=== PATIENT | male | born 1965 | race Caucasian/White ===

== ENCOUNTER 2020-09-11 13:49 | Outpatient (REF) | payer BC, SELFPAY | END 2020-09-11 13:50 | disposition home or self-care (01) | LOC: HO.LAB 13:49 | PROVIDERS: PCP Internal Medicine; Visit Provider Internal Medicine | DX: Z20.828 Contact with and (suspected) exposure to other viral communicable diseases (principal) | CPT/HCPCS: C9803; U0003 ==

== ENCOUNTER 2020-11-03 09:59 | Outpatient (REF) | payer BC, SELFPAY | END 2020-11-03 10:00 | disposition home or self-care (01) | LOC: HO.LAB 09:59 | PROVIDERS: Visit Provider Internal Medicine | DX: Z20.822 Contact with and (suspected) exposure to COVID-19 (principal) | CPT/HCPCS: 36415; C9803; U0003; U0005 ==

== ENCOUNTER 2023-06-03 13:19 | Outpatient (REF) | payer OTHER, SELFPAY ==
[2023-06-03 16:04] LABS: MANUAL DIFF FLAG NO
[2023-06-03 16:08] LABS: Basophils Percent Auto 0.8 % (0-2); Eosinophils Absolute Auto 0.1 X10*3/uL (0.0-0.4); Eosinophils Percent Auto 1.5 % (0-4); Hematocrit 44.2 % (42.0-52.0); Hemoglobin 15.1 g/dl (14.0-18.0); Imm Gran Abs Auto 0.01 X10*3/uL (0.00-0.03); Imm Gran Pct Auto 0.2 % (0.0-0.4); Lymphocytes Absolute Auto 2.2 X10*3/uL (1.2-4.9); Lymphocytes Percent Auto 41.1 % (20-40); Mean Corpuscular HGB Conc 34.2 g/dl (31.0-36.0); Mean Corpuscular Hemoglobin 30.4 pg (27.0-33.0); Mean Corpuscular Volume 88.9 fL (80.0-98.0); Mean Platelet Volume 11.4 fL (9.4-12.4); Monocytes Absolute Auto 0.3 X10*3/uL (0.1-1.2); Neutrophils Absolute Auto 2.7 x10*3/uL (2.0-8.3); Neutrophils Percent Auto 50.4 % (45-73); Platelet Count 198 X10*3/uL (160-400); Red Blood Count 4.97 X10*6/uL (4.60-5.80); Red Cell Distribution Width 12.6 % (11.0-16.0); White Blood Count 5.3 X10*3/uL (4.8-10.8)
[2023-06-03 16:27] LABS: Alanine Aminotransferase 24 U/L (0-40); Albumin Level 4.5 g/dL (3.5-5.0); Alkaline Phosphatase 78 U/L (39-117); Anion Gap 13 (12-20); Aspartate Amino Transferase 25 U/L (5-37); Blood Urea Nitrogen 15 mg/dL (9-16); Calcium 9.5 mg/dL (8.4-10.2); Carbon Dioxide 27 mmol/L (22-29); Chloride 106 mmol/L (96-108); Cholesterol 216 mg/dL (<200); Estimated Glomerular Filt Rate > 60; Glucose Fasting 88 mg/dL (60-99); HDL Cholesterol 41 mg/dL (>40); LDL Cholesterol Calculated 143 mg/dL (<100); Potassium 4.3 mmol/L (3.3-5.1); Sodium 142 mmol/L (135-145); Total Protein 7.4 g/dL (6.5-8.0); Triglycerides 161 mg/dL (<150)
[2023-06-03 16:43] LABS: Thyroid Stimulating Hormone 1.53 uIU/mL (0.32-4.0); Vitamin D 25-OH Total 38.8 ng/mL (>30)
[2023-06-03 16:45] LABS: PSA,Total (Free>4and<10) 4.03 ng/mL (0.00-4.00)
[2023-06-04 13:34] LABS: Free Prostate Spec Ag 0.7 ng/mL; Percent Free Prostate Spec Ag 19 % (calc) (>25); Prostate Specific Ag Total 3.7 ng/mL (< OR = 4.0)
== END 2023-06-03 13:20 | disposition home or self-care (01) ==
LOC: HO.HMGCLDS 13:19
PROVIDERS: PCP Internal Medicine; Visit Provider Internal Medicine
DX: Z00.00 Encounter for general adult medical examination without abnormal findings (principal); Z12.5 Encounter for screening for malignant neoplasm of prostate; F98.8 Other specified behavioral and emotional disorders with onset usually occurring in childhood and adolescence
CPT/HCPCS: 36415; 80053; 80061; 82306; 84153; 84154; 84443; 85025

== ENCOUNTER 2023-08-12 12:52 | Outpatient (REF) | payer OTHER, SELFPAY ==
[2023-08-12 16:38] LABS: PSA,Total (Free>4and<10) 3.12 ng/mL (0.00-4.00)
== END 2023-08-12 12:53 | disposition home or self-care (01) ==
LOC: HO.HMGCLDS 12:52
PROVIDERS: PCP Internal Medicine; Visit Provider Internal Medicine
DX: Z12.5 Encounter for screening for malignant neoplasm of prostate (principal); R97.20 Elevated prostate specific antigen [PSA]
CPT/HCPCS: 36415; 84153

== ENCOUNTER 2024-08-03 12:07 | Outpatient (REF) | payer BC, SELFPAY ==
[2024-08-03 13:00] LABS: MANUAL DIFF FLAG NO
[2024-08-03 14:34] LABS: Basophils Absolute Auto 0.1 X10*3/uL (0.0-0.2); Eosinophils Absolute Auto 0.1 X10*3/uL (0.0-0.4); Eosinophils Percent Auto 2.4 % (0-4); Hematocrit 41.9 % (42.0-52.0); Hemoglobin 13.9 g/dl (14.0-18.0); Imm Gran Abs Auto 0.01 X10*3/uL (0.00-0.03); Imm Gran Pct Auto 0.2 % (0.0-0.4); Lymphocytes Absolute Auto 2.6 X10*3/uL (1.2-4.9); Lymphocytes Percent Auto 50.7 % (20-40); Mean Corpuscular HGB Conc 33.2 g/dl (31.0-36.0); Mean Corpuscular Hemoglobin 29.6 pg (27.0-33.0); Mean Corpuscular Volume 89.3 fL (80.0-98.0); Monocytes Absolute Auto 0.4 X10*3/uL (0.1-1.2); Monocytes Percent Auto 7.9 % (2-11); Neutrophils Absolute Auto 1.9 x10*3/uL (2.0-8.3); Neutrophils Percent Auto 37.8 % (45-73); Platelet Count 205 X10*3/uL (160-400); Red Blood Count 4.69 X10*6/uL (4.60-5.80); White Blood Count 5.1 X10*3/uL (4.8-10.8)
[2024-08-03 15:29] LABS: Alanine Aminotransferase 26 U/L (0-40); Albumin Level 4.3 g/dL (3.5-5.0); Anion Gap 11 (12-20); Aspartate Amino Transferase 28 U/L (5-37); Bilirubin Total 0.7 mg/dL (0.0-1.0); Blood Urea Nitrogen 13 mg/dL (9-16); Calcium 9.6 mg/dL (8.4-10.2); Carbon Dioxide 28 mmol/L (22-29); Chloride 106 mmol/L (96-108); Cholesterol 220 mg/dL (<200); Estimated Glomerular Filt Rate > 60; Glucose Random 85 mg/dL (60-115); HDL Cholesterol 46 mg/dL (>40); LDL Cholesterol Calculated 139 mg/dL (<100); Potassium 4.3 mmol/L (3.3-5.1); Sodium 141 mmol/L (135-145); Total Protein 7.1 g/dL (6.5-8.0); Triglycerides 175 mg/dL (<150)
[2024-08-03 15:38] LABS: Alkaline Phosphatase 73 U/L (39-117)
[2024-08-03 15:42] LABS: Thyroid Stimulating Hormone 1.04 uIU/mL (0.32-4.0); Vitamin D 25-OH Total 18.5 ng/mL (>30)
[2024-08-11 18:23] LABS: Factor V Leiden POSITIVE
== END 2024-08-03 12:08 | disposition home or self-care (01) ==
LOC: HO.HMGCX 12:07
PROVIDERS: PCP Internal Medicine; Visit Provider Internal Medicine
DX: R05.8 Other specified cough (principal); Z00.00 Encounter for general adult medical examination without abnormal findings; M11.9 Crystal arthropathy, unspecified; F98.8 Other specified behavioral and emotional disorders with onset usually occurring in childhood and adolescence; F32.9 Major depressive disorder, single episode, unspecified; Z83.2 Family history of diseases of the blood and blood-forming organs and certain disorders involving the immune mechanism
CPT/HCPCS: 36415; 71046; 80053; 80061; 81241; 82306; 84443; 85025

== ENCOUNTER → 2024-09-20 11:16 | Outpatient (BNV) | payer BC, SELFPAY | PROVIDERS: PCP Internal Medicine; Visit Provider Internal Medicine | DX: D68.51 Activated protein C resistance (principal) | CPT/HCPCS: 99204 ==

== ENCOUNTER 2024-09-27 09:25 | Outpatient (AMB) | payer BC, SELFPAY ==
--- NOTE | 2024-09-27 09:27 | MHC.OFFVIS ---
Vital Signs 09/27/24 09:33 Height 5 ft 7 in Weight 156 lb BMI 24.4 BP 153/93 H Blood Pressure Location Rt brachial Position Sitting Pulse 69 Intake Visit Reasons: Umbilical Hernia Intake Note: Patient referred by pcp Dr. Lucia for Umbilical hernia. Hx of umbilical hernia since childhood, Patient c/o: progressively growing. Denies pain. Education And Training Manager Required: No Accompanied by: Self / Same As Patient Allergies Penicillins [PENICILLINS] Allergy (Unknown, Unverified 06/01/24 11:51) UNKNOWN Penicillin Allergy (Unknown, Uncoded 06/01/24 11:51) HPI Comments Details: The patient presents here for evaluation of a symptomatic umbilical hernia. He is had this many years time. His increasing in size, become more symptomatic. He would like to have it repaired. He is no other GI issues or complaints. Does occasionally heavy lifting but is quite active in the skin. Chart was reviewed and patient evaluated. [facility] Medical History Crystal induced arthropathy Radiculopathy, cervical region Essential (primary) hypertension Acute right-sided low back pain without sciatica Prostate cancer screening Colon cancer screening Encounter for general adult medical examination without abnormal findings Attention deficit disorder (ADD) without hyperactivity Elevated PSA Factor V Leiden mutation Rash Reactive depression Family History Mother Factor 5 Leiden mutation, heterozygous Maternal Uncle Factor 5 Leiden mutation, heterozygous Family/Other Factor 5 Leiden mutation, heterozygous Social History Household Members: Spouse and Family Patient Tobacco Use Status: Never used Tobacco service: No Current occupational status: employed Gender identity: Male Physical Exam Vital Signs: Last Vital Signs Pulse 69 09/27/24 09:33 BP 153/93 H 09/27/24 09:33 BMI result Body Mass Index 24.4 Chest Other: Chest breath sounds bilaterally, HS 1 in 2 GI Other: Patient was examined both supine and standing with Valsalva. Abdomen moderately corpulent, soft, benign. Roughly 3 cm reducible umbilical hernia. Bilateral groin exam negative. Genitalia within normal limits. Assessment & Plan Assessment & Plan (1) Umbilical hernia: Code(s): K42.9 - Umbilical hernia without obstruction or gangrene Category: Surgical Plan Risks, benefits, and alternatives of open umbilical hernia repair with mesh were reviewed with the patient and included but not limited to bleeding, infection, recurrence, numbness, pain, scarring, bowel injury or leak and the patient wishes to proceed but he would like to do so when his schedule permits him to have the surgery. All questions answered. Arrangements were made for this. Coding Level of Care Code New Pt Level 5 (72065) Diagnoses Umbilical hernia K42.9
[2024-09-27 09:33] VITALS: BP 153/93; PULSE 69; BMI 24.4
== END 2024-09-27 09:51 | disposition home or self-care (01) ==
PROVIDERS: PCP Internal Medicine; Referring Provider Internal Medicine; Visit Provider Surgery
DX: K42.9 Umbilical hernia without obstruction or gangrene (principal)
CPT/HCPCS: 99204

== ENCOUNTER → 2024-09-27 09:25 | Outpatient (BNVA) | payer BC, SELFPAY | PROVIDERS: PCP Internal Medicine; Referring Provider Internal Medicine; Visit Provider Surgery ==